=== PATIENT | female | born 1975 | race Caucasian/White ===

== ENCOUNTER 2023-01-16 03:58 | Observation (INO) | payer SELFPAY ==
[2023-01-16] MEDS ORDERED: KETOROLAC TROMETHAMINE 15 MG/ML VIAL IM ONE (04:44)
[2023-01-16] MEDS ORDERED: ACETAMINOPHEN 1000 MG/100 ML BAG IVPB ONE (04:44)
[2023-01-16] MEDS ORDERED: LIDOCAINE 5% TOPICAL PATCH TP ONE (04:45)
[2023-01-16] MEDS ORDERED: ACETAMINOPHEN INJECTION 100 ML IVPB ONE (04:50)
[2023-01-16] MEDS ORDERED: LIDOCAINE 4% PATCH TP ONE (04:51)
[2023-01-16] MEDS ORDERED: KETOROLAC TROMETHAMINE 15 MG/ML VIAL ONE ×2 (04:51→12:33)
[2023-01-16] MEDS ORDERED: diazePAM 5 MG TABLET PO ONE (05:02)
[2023-01-16] MEDS ORDERED: diazePAM 5 MG TABLET ONE (05:08)
[2023-01-16 05:18] LABS: BASO % 0.3 % (0-2.0); EOS % 2.1 % (0-4.5); HEMATOCRIT 45.7 % (32.4-45.2); LYMPH % 23.4 % (8-40); MCH 28.9 pg (25.7-33.7); MCHC 32.8 g/dl (32.0-36.0); MEAN CELL VOLUME 88.2 fl (80-96); MEAN PLT VOLUME 11.7 fl (7.5-11.1); MONO % 5.3 % (3.8-10.2); NEUT % 68.9 % (42.8-82.8); PLATELET COUNT 213 10^3/uL (134-434); RBC 5.18 M/mm3 (3.60-5.2); RDW 14.8 % (11.6-15.6); WHITE BLOOD COUNT 7.9 K/mm3 (4.0-10.0)
[2023-01-16 05:21] LABS: POTASSIUM 5.3 mmol/L (3.5-5.1)
[2023-01-16 05:22] LABS: CALCIUM 9.1 mg/dL (8.5-10.1)
[2023-01-16 05:23] LABS: ALBUMIN 3.9 g/dl (3.4-5.0); BLOOD UREA NITROGEN 22.2 mg/dL (7-18); MAGNESIUM 2.1 mg/dL (1.8-2.4)
[2023-01-16 05:26] LABS: CREATININE 0.9 mg/dL (0.55-1.3)
[2023-01-16 05:27] LABS: BILIRUBIN,TOTAL 0.6 mg/dL (0.2-1); TOT PROT 8.1 g/dl (6.4-8.2)
[2023-01-16 05:46] LABS: INR 1.07 (0.83-1.09); PROTHROMBIN TIME (PATIENT) 12.4 SEC (9.7-13.0)
[2023-01-16 05:48] LABS: ACTIVATED PTT 27.7 SECONDS (25.2-36.5)
[2023-01-16 05:58] LABS: EPI CELLS >36 /uL (0-25.1); HYALINE CASTS 2 /uL (0-3.1); URINE APPEARANCE CLEAR; URINE BACTERIA 1940 /uL (0-1359); URINE BILIRUBIN NEGATIVE (NEGATIVE); URINE COLOR YELLOW; URINE GLUCOSE (UA) NEGATIVE (NEGATIVE); URINE KETONE TRACE (NEGATIVE); URINE LEUK ESTERASE NEGATIVE (NEGATIVE); URINE NITRITE NEGATIVE (NEGATIVE); URINE PROTEIN NEGATIVE (NEGATIVE); URINE RBC 27 /uL (0-23.9); URINE UROBILINOGEN 0.2 mg/dL (0.2-1.0); URINE WBC 40 /uL (0-25.8)
[2023-01-16 06:12] LABS: HCG,QUALITATIVE URINE Negative
[2023-01-16] MEDS ORDERED: oxyCODONE HCL 5 MG TABLET PO ONE (06:29)
[2023-01-16] MEDS ORDERED: oxyCODONE HCL 5 MG TABLET ONE (06:51)
[2023-01-16 07:03] VITALS: RESP 18
[2023-01-16 12:19] LABS: URINE APPEARANCE CLEAR; URINE BILIRUBIN NEGATIVE (NEGATIVE); URINE COLOR YELLOW; URINE GLUCOSE (UA) NEGATIVE (NEGATIVE); URINE KETONE 1+ (NEGATIVE); URINE LEUK ESTERASE NEGATIVE (NEGATIVE); URINE NITRITE NEGATIVE (NEGATIVE); URINE PROTEIN TRACE (NEGATIVE); URINE UROBILINOGEN 0.2 mg/dL (0.2-1.0)
[2023-01-16] MEDS ORDERED: KETOROLAC TROMETHAMINE 15 MG/ML VIAL IVPUSH ONE (12:21)
[2023-01-16] MEDS ORDERED: morphine CARPU-JECT 4 MG/1 ML DISP.SYRIN IVPUSH ONE (13:53)
[2023-01-16] MEDS ORDERED: NAPROXEN 500 MG TABLET ONE (14:20)
[2023-01-16] MEDS ORDERED: CYCLOBENZAPRINE HCL 5 MG TABLET ONE ×2 (14:21→14:33)
[2023-01-16] MEDS ORDERED: morphine SULFATE 4 MG/ML VIAL ONE (14:21)
[2023-01-16] MEDS ORDERED: FAMOTIDINE 20 MG TABLET ONE (14:21)
[2023-01-16] MEDS: FAMOTIDINE 20 MG TABLET PO SCH (14:36)
[2023-01-16] MEDS: CYCLOBENZAPRINE HCL 5 MG TABLET PO SCH ×2 (14:36→21:42)
[2023-01-16 17:24] VITALS: BMI 36.8
[2023-01-16] MEDS: NAPROXEN 250 MG TABLET PO SCH (21:42)
[2023-01-16] MEDS ORDERED: LIDOCAINE PATCH REMOVAL MC SCH (22:00)
[2023-01-17] MEDS: CYCLOBENZAPRINE HCL 5 MG TABLET PO SCH (06:41)
[2023-01-17 09:25] LABS: BASO % 0.6 % (0-2.0); EOS % 2.3 % (0-4.5); HEMATOCRIT 41.6 % (32.4-45.2); HEMOGLOBIN 14.2 GM/dL (10.7-15.3); LYMPH % 28.3 % (8-40); MCH 29.4 pg (25.7-33.7); MCHC 34.1 g/dl (32.0-36.0); MEAN CELL VOLUME 86.3 fl (80-96); MEAN PLT VOLUME 11.2 fl (7.5-11.1); NEUT % 63.8 % (42.8-82.8); PLATELET COUNT 169 10^3/uL (134-434); RBC 4.82 M/mm3 (3.60-5.2); RDW 14.7 % (11.6-15.6); WHITE BLOOD COUNT 5.8 K/mm3 (4.0-10.0)
[2023-01-17 09:47] LABS: POTASSIUM 4.2 mmol/L (3.5-5.1)
[2023-01-17 09:54] LABS: CALCIUM 8.6 mg/dL (8.5-10.1)
[2023-01-17 09:58] LABS: CREATININE 0.7 mg/dL (0.55-1.3)
[2023-01-17] MEDS: FAMOTIDINE 20 MG TABLET PO SCH (10:27)
[2023-01-17] MEDS: NAPROXEN 250 MG TABLET PO SCH (10:27)
[2023-01-17 13:10] VITALS: BP 105/60; PULSE 74; TEMP 98.6
== END 2023-01-17 13:37 | disposition home or self-care (01) ==
LOC: JER 03:58 → JERBED 13:43 → J5S 17:01
PROVIDERS: ADMIT Internal Medicine
CPT/HCPCS: 0241U-QW; 36415; 71046-TC-FY; 71275-TC; 72128-TC; 76705-TC; 80048; 80053; 81003; 83735; 84484; 84703; 85025; 85379; 85610; 85730; 87086; 93005; 93010; 97116-GP; 97162-GP; 99285-25; G0378; Q9967

== ENCOUNTER 2023-05-29 09:20 | Emergency (ER) | payer OTHER ==
[2023-05-29 09:26] VITALS: BP 118/70; PULSE 89; RESP 18; TEMP 97.8; BMI 30.7
[2023-05-29] MEDS ORDERED: ACETAMINOPHEN 500 MG TABLET (FP) ONE (10:05)
[2023-05-29] MEDS ORDERED: LIDOCAINE 4% PATCH TP ONE (10:05)
[2023-05-29] MEDS ORDERED: KETOROLAC TROMETHAMINE 30 MG/1 ML VIAL ONE (10:05)
[2023-05-29] MEDS: LIDOCAINE 4% PATCH TP ONE (10:12)
[2023-05-29] MEDS: KETOROLAC TROMETHAMINE 30 MG/1 ML VIAL IM ONE (10:13)
[2023-05-29] MEDS: ACETAMINOPHEN 500 MG TABLET (FP) PO ONE (10:13)
[2023-05-29] MEDS ORDERED: LIDOCAINE PATCH REMOVAL MC SCH (22:00)
== END 2023-05-29 11:55 | disposition home or self-care (01) ==
LOC: JERFT 09:20
PROC: 3E0233Z Introduction of Anti-inflammatory into Muscle, Percutaneous Approach (ICD-10-PCS; principal; 2023-05-29)
DX: M54.41 Lumbago with sciatica, right side (principal)
CPT/HCPCS: 99284-25